=== PATIENT | male | born 1995 | race Caucasian/White ===

== ENCOUNTER 2019-12-16 16:06 | Emergency (ER) | payer BC, SELFPAY ==
[2019-12-16 16:08] VITALS: BP 105/68; PULSE 73; RESP 16; TEMP 36.2; O2SAT 98; BMI 22.6
--- NOTE | 2019-12-16 16:32 | ED.VISSUMM ---
- ER Visit Summary Date of Service: 12/16/19 Chief Complaint: Covid test History of Present Illness: The patient is a 24 M who is requesting a test for COVID-19. He lives with someone who is positive. He has no symptoms. He has a history of occasional alcohol use and tobacco use. Physical Examination: Afebrile and vital signs unremarkable. Exam unremarkable. Test Results: Send out COVID-19 test is pending. Emergency Department Course and Treatment: Screening performed. We will send a nonemergent test. He will maintain social precautions. Patient was discharged. Treatment Plan: As above Disposition: As above Impression: COVID-19 screen This note was generated with [employer] dictation software. It may contain incorrect words, spelling, and punctuation that were not noted in review of the chart prior to signing ED Disposition - Plan for ED Patient: Referrals: Reggie Garcia MD [Primary Care Provider] -
--- NOTE | 2019-12-16 16:33 | ED.DEP ---
ED Disposition - Plan for ED Patient: Instructions: ED Upper Resp Infec No Abx Tx Referrals: Reggie Garcia MD [Primary Care Provider] -
== END 2019-12-16 16:58 | disposition home or self-care (01) ==
LOC: ED 16:50
PROVIDERS: Emergency Provider Emergency Medicine
DX: Z20.828 Contact with and (suspected) exposure to other viral communicable diseases (principal); Z72.0 Tobacco use
CPT/HCPCS: 87635; 99282; U0003

== ENCOUNTER 2021-01-31 20:17 | Emergency (ER) | payer SELFPAY ==
[2021-01-31 20:22] VITALS: BP 137/83; PULSE 99; RESP 17; TEMP 37.7; O2SAT 99; BMI 17.4
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
[2021-01-31 20:56] LABS: Absolute Lymphocyte Count 2.94 X10^3/uL (0.83-4.51); Absolute Neutrophil Count 8.1 X10^3/uL (2.0-7.7); Basophil# 0.07 X10^3/uL; Basophil% 0.6 % (0-1); Eosinophil# 0.12 X10^3/uL; Hematocrit 42.7 % (40-54); Lymphocyte # 2.94 X10^3/ul (0.83-4.51); Lymphocyte % 24.5 % (19-41); Mean Corp Hgb Conc 35.1 g/dL (32-36); Mean Corpuscular Volume 85.4 fL (80-94); Monocyte# 0.74 X10^3/uL; Monocyte% 6.2 % (0-10); NRBC Flagged by Analyzer 0 % (0-5); Neutrophil # 8.08 X10^3/uL (2.7-7.7); Neutrophil % 67.4 % (47-70); Platelet Count 246 K/mm3 (150-450); RBC Distribution Width CV 12.5 % (11.6-14.6); RBC Distribution Width SD 38.7 fl (35.1-43.9)
[2021-01-31 21:11] LABS: Amphetamine Urine VISTA NEGATIVE (<1000 ng/mL); Barbiturate Urine VISTA NEGATIVE (< 200 ng/mL); Benzodiazepine Urine VISTA NEGATIVE (< 200 ng/mL); Cocaine Urine VISTA NEGATIVE (< 300 ng/mL); Ecstacy Urine VISTA NEGATIVE (< 500 ng/mL); Methadone Urine VISTA NEGATIVE (< 300 ng/mL); PCP Urine VISTA NEGATIVE (< 25 ng/mL); THC Urine VISTA POSITIVE (< 50 ng/mL); Vista UDS pH Range 5
[2021-01-31 21:14] LABS: ALB/GLOB Ratio 1.5 RATIO (0.9-2.4); AST(SGOT) 15 U/L (15-37); Alanine Aminotransfer ALT/SGPT 25 U/L (16-61); Albumin, Serum 4.7 g/dL (3.2-5.0); Alkaline Phosphatase 67 U/L (45-117); Anion Gap 12 (5-15); BUN 14 mg/dL (7-18); BUN/Creat Ratio 17.7 RATIO (10-20); Calcium,Total 8.7 mg/dL (8.5-10.1); Chloride 106 mmol/L (98-107); Creatinine, Serum 0.79 mg/dL (0.70-1.30); EST Glomerular Filtration Rate 127 mL/min (>60); Est Glom Filt Rate - Afr Amer 154 mL/min (>60); Globulin 3.1 g/dL (2.2-4.2); Glucose 79 mg/dL (74-106); Potassium 3.4 mmol/L (3.5-5.1); Protein, Total 7.8 g/dL (6.4-8.2); Sodium Level 141 mmol/L (136-145)
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
[2021-01-31 22:00] VITALS: RESP 15
[2021-01-31 23:00] VITALS: RESP 16
--- NOTE | 2021-01-31 23:58 | ED.RN ---
CRISIS CALLED AND SAID PATIENT IS PENDING AT [facility]
[2021-02-01] VITALS (8 sets, daily range): BP systolic 115–119; BP diastolic 74–79; PULSE 63–87; RESP 15–16; O2SAT 97
--- NOTE | 2021-02-01 03:06 | ED.RN ---
PATIENT STANDING OUTSIDE OF ROOM. PATIENT STATING HE IS SICK OF SITTING HERE AND WANTS TO LEAVE. PATIENT MADE AWARE HE CANNOT LEAVE DUE TO BEING PINK SLIPPED. PATIENT MADE AWARE HE IS BEING PLACED AT FACILITY. PATIENT AT THAT POINT WALKED OUT OF ROOM AND OUTSIDE DOWN THE RAMP. THIS RN AND RF TECHNICIAN FOLLOWED BEHIND PATIENT. PATIENT THEN TURNED AROUND. PATIENT COMES BACK INTO ER. PATIENT STATES IT IS TOO COLD FOR THAT HIS FEET ARE ALREADY NUMB. PATIENT RETURNED TO ROOM.
--- NOTE | 2021-02-01 05:09 | ED.RN ---
CRISIS CALLED AND THEY HAVE SET UP A RIDE FOR PATIENT TO LEAVE AT 0730 WITH [facility]
--- NOTE | 2021-02-01 07:10 | ED.RN ---
attempt to call report to nurse at [facility]. Nurse is currently busy in report. Nurse will call back
== END 2021-02-01 07:40 ==
LOC: ED 21:04
PROVIDERS: Emergency Provider Student in an Organized Health Care Education/Training Program
DX: R45.851 Suicidal ideations (principal); F17.210 Nicotine dependence, cigarettes, uncomplicated
CPT/HCPCS: 80053; 80307; 82077; 85025; 87426; 99284; A4216

== ENCOUNTER 2023-07-06 07:26 | Day surgery (SDC) | payer MEDICAID, SELFPAY ==
[2023-07-06 07:43] VITALS: BP 104/75; PULSE 75; RESP 16; TEMP 36.1; O2SAT 100; BMI 19.2
[2023-07-06] MEDS: Lactated Ringers 1,000 ML 15 ML IV (07:45)
--- NOTE | 2023-07-06 08:21 | PCM.HP.BLA ---
History and Physical Date of Admission: 07/06/23 Intake Vital Signs 02/01/2120:22 05/30/2408:16 06/14/2407:05 Height 6 ft 6 ft 5 ft 6 in Weight: 124 lb 6 oz BMI 20.0 BP 107/74 Blood Pressure Location Rt brachial Position Sitting Respiration 18 Pulse 92 Pulse Source Monitor Temp 98.0 F Temp Source Temporal Pulse Oximetry (%) 98 Oxygen Delivery Method room air Intake Visit Reasons: ABDOMEN PAIN Chief Complaint: Abdominal pain Instrument Technologist Required: No Is patient in pain?: No Allergies No Known Allergies Allergy (Verified 06/14/23 08:06) Medications dicyclomine 20 mg tablet 20 mg PO TID 06/14/23 [History Confirmed 06/14/23] pantoprazole 40 mg tablet,delayed release 40 mg PO QDAY 06/14/23 [History Confirmed 06/14/23] rifaximin 550 mg tablet (Xifaxan) 550 mg PO TID 06/14/23 [History Confirmed 06/14/23] PFSH Medical History Abdominal pain Anxiety with depression Diarrhea Marijuana use Surgical History (Updated 06/14/23 @ 08:04 by Mindy Perez) No history of previous surgery Social History (Updated 06/14/23 @ 08:05 by Mindy Perez) Smoking Status: Current every day smoker Electronic Cigarette Use: with nicotine alcohol intake: current alcohol intake frequency: a few times a month Alcohol type: beer substance use type: marijuana HPI HPI HPI: Patient is a 27-year-old male here for epigastric pain. The patient reports has been going on for several years. He says it is constant. It does not radiate. He said nothing he does makes it better or worse. He has been on omeprazole for a month. He notes no improvement. He also says he has been having a lot of diarrhea and has 3-4 bowel movements every morning. He says they are not formed. He has not noted any blood in the stool or lower abdominal pain. ROS General General: Yes fatigue; No weight change, appetite, colon cancer, breast cancer or weakness HEENT HEENT: No difficulty swallowing, eye injury, eye surgery, swollen glands or hoarseness Endo Endocrine: No thyroid disease, diabetes mellitus, thyroid cancer, Hair loss, heat intolerance or cold intolerance Skin Skin: No rash or changing moles Breast Breast: No left breast lump, right breast lump, nipple discharge, breast pain, abnormal mammogram, abnormal US or breast enlargement Musc Musculoskeletal: No back problems, arthritis, rheumatoid arthritis, gout or joint pain Cardio Cardiovascular: No murmur, pacemaker, heart disease, atrial fibrillation, high blood pressure, heart attack, heart stent, palpitations, shortness of breat with exertion or chest pain Psych Psychiatric: Yes depression and anxiety; No hearing voices Additional Details: ADHD, OCD Resp Respiratory: No shortness of breath, No sleep apnea, No cough, No COPD, No asthma, No emphysema and No wheezing Gastro Gastrointestinal: Yes abdominal pain, Yes nausea or vomiting, Yes diarrhea, Yes constipation, No blood in stool, No acid reflux, No hemorrhoids, No ulcers, No gallbladder problem and No black,tarry stools Devante Hematologic: No blood thinners, No blood disorders, No bleeding, No anemia and No blood clots Neuro Neurologic: No system reviewed and no additional complaints, except as documented, No as per HPI, No abnormal gait, No abnormal hearing, No abnormal movements, No abnormal speech, No behavioral changes, No burning sensations, No confusion, No convulsions, No disequilibrium, No dizziness, No localized weakness, No frequent falls, No headache(s), No lack of coordination, No loss of vision, No memory loss, No numbness, No other visual disturbances, No radicular pain, No restless legs, No sensory deficit, No syncope, No tingling, No tremor(s), No weakness and No other Exam Const General: cooperative Orientation: alert and oriented x3 HENMT Head: normal to inspection Neck Neck: normal visual inspection and full ROM Chest Chest palpation & inspection: normal inspection of the chest Resp Effort & Inspection: normal respiratory effort Auscultation: clear to auscultation bilaterally Cardio Rate: regular rate Rhythm: regular rhythm GI Inspection: non-distended Palpation: soft and nontender Skin General: no rashes or lesions noted Neuro General: patient alert and patient oriented x3 Extrem General: full ROM Psych Appearance: grossly normal Mental Status: mental status grossly normal Assessment and Plan Assessment and Plan (1) Epigastric pain: Status: Acute Plan: The patient has been having epigastric pain for years. Patient has been on omeprazole for a month but has not noted any improvement. I recommended EGD and colonoscopy to evaluate for his abdominal pain but at this time the patient would only like EGD. I explained endoscopy in detail to the patient. I explained the risks including but not limited to stroke or heart attack with anesthesia, perforation of the GI tract, bleeding, infection. I explained that any of these could necessitate further emergency surgery. The patient understands and all questions were answered sufficiently. The patient wishes to proceed with procedure. Francis Oliver MD Pager: [facility] [address] [place] [address] [address] [place] [address] Office: I have examined the patient and the H&P has been reviewed. There are no clinical changes since date of exam.
--- NOTE | 2023-07-06 08:30 | EGD_PTH ---
PATIENT: FLORA BALLARD LOC: EN U#:[id number] AGE/SX: 27/M ROOM: RE07/06/[address]: Dr. Francis Oliver MD : 1995 BED: DIS: 07/06/2023 SPEC #: [id number] RECD: 07/06/23 11:29 STATUS: MALKA VASQUEZ #: [id number] ANA: 07/06/23 08:[address]: Francis Oliver DEPT: SURGICAL PATHOLOGY RECD BY: Traci Chou ENTERED: 07/06/23 13:15 SP TYPE: EGD BIOPSY OT DR: Mynor Dsouza, ANNABELLA-Daryl Tissues: A - Gastric mucous membrane B - Stomach, NOS Procedures: Special Stain Group II Surgery Specimen Level IV Alcian Blue/PAS (control) HEADER OPERATION: EGD with biopsies PRE-OP DIAGNOSIS: Epigastric pain TISSUE SUBMITTED: A- Gastric antrum biopsy, B- Gastroesophageal junction biopsy MICROSCOPIC DIAGNOSIS A. Gastric antrum, biopsy: Chronic gastritis. B. Gastroesophageal junction, biopsy: Mild chronic inflammation. No evidence of goblet cell metaplasia. See comment. AM/mr 07/07/2023 COMMENT A. The results of immunohistochemistry for Helicobacter pylori will be reported separately ([id number]). B. Alcian blue/PAS stain with matched control supports the above diagnosis. MICROSCOPIC DESCRIPTION Slides are reviewed. GROSS DESCRIPTION A. Received in fixative is one container labeled with the patient's name and designated Gastric antrum biopsy. The specimen consists of one irregular fragment of light pacheco soft tissue that measures 0.5 x 0.5 x 0.1 cm. The specimen is totally submitted in one cassette. B. Received in fixative is one container labeled with the patient's name and designated GE junction biopsy. The specimen consists of multiple irregular fragments of light pacheco soft tissue that in aggregate measure 0.7 x 0.5 x 0.1 cm. The specimen is totally submitted in one cassette. AM/mr 07/06/23 TC:3 CPT: 38032m0,61271
--- NOTE | 2023-07-06 08:30 | IMM_PTH ---
PATIENT: FLORA BALLARD LOC: EN U#:[id number] AGE/SX: 27/M ROOM: RE07/06/[address]: Dr. Francis Oliver MD : 1995 BED: DIS: 07/06/2023 SPEC #: [id number] RECD: 07/06/23 13:49 STATUS: MALKA VASQUEZ #: [id number] ANA: 07/06/23 08:[address]: Francis Oliver DEPT: IMMUNOHISTOCHEMISTRY RECD BY: Geovanny Creda ENTERED: 07/06/23 13:49 SP TYPE: IMMUNO OTHR DR: DEEDEE Soto Tissues: A - Gastric mucous membrane Procedures: H Pylori (initial) PHYSICIAN & INSTITUTION [place] [id number] SPECIMEN INFORMATION: Tissue Source: A- Gastric antrum biopsy Clinical Info: Epigastric pain Specimen Number: [id number] CPT code: 78054 METHODOLOGY: Deparaffinized sections of prefer/formalin-fixed tissue or PAP/DQ stained slides are incubated with monoclonal/polyclonal antibodies/oligonucleotide probes. Localization is made via biotin free immunoperoxidase method. Appropriate controls are performed and reacted as expected. Results on target cell population are indicated in the following table: RESULTS: ANTIBODY / CLONE RESULT Block A H Pylori (polyclonal) negative These tests were developed and their performance characteristics determined by [facility]. They may not have been cleared or approved by the U.S. Food and Drug Administration. The FDA has determined that such clearance or approval is not necessary. The above immunohistochemical/dualISH markers are ordered and reviewed by the Pathologist. INTERPRETATION: A. Gastric antrum, biopsy: Negative for Helicobacter pylori organisms. NEERU/ 07/07/2023
[2023-07-06 08:46] VITALS: BP 104/75; BP 94/60; PULSE 60; RESP 14; TEMP 36.2; O2SAT 98
--- NOTE | 2023-07-06 08:46 | OP.EGD_ITS ---
Patient Name: Juanito Combs Procedure Date: 07/06/2023 8:26 AM Date of : 1995 Age: 27 Procedure: Upper GI endoscopy Indications: Epigastric abdominal pain Providers: Francis Oliver MD Referring MD: Mynor Dsouza [facility], Associate Professor Of Biology-c Medicines: Propofol per Anesthesia Patient Profile: This is a 27 year old male. Refer to note in patient chart for documentation of history and physical. Complications: No immediate complications. Procedure: Pre-Anesthesia Assessment: - Prior to the procedure, a History and Physical was performed, and patient medications and allergies were reviewed. The patient's tolerance of previous anesthesia was also reviewed. The risks and benefits of the procedure and the sedation options and risks were discussed with the patient. All questions were answered, and informed consent was obtained. Prior Anticoagulants: The patient has taken no anticoagulant or antiplatelet agents. After reviewing the risks and benefits, the patient was deemed in satisfactory condition to undergo the procedure. After obtaining informed consent, the endoscope was passed under direct vision. Throughout the procedure, the patient's blood pressure, pulse, and oxygen saturations were monitored continuously. The Endoscope was introduced through the mouth, and advanced to the third part of duodenum. The upper GI endoscopy was accomplished without difficulty. The patient tolerated the procedure well. Scope In: 8:37:13 AM Scope Out: 8:41:39 AM Total Procedure Duration Time 0 hours 4 minutes 26 seconds Findings: The esophagus was normal. The stomach was normal. The examined duodenum was normal. Biopsies were taken with a cold forceps in the gastric antrum for Helicobacter pylori testing. Biopsies were taken with a cold forceps at the gastroesophageal junction for histology. Impression: - Normal esophagus. - Normal stomach. - Normal examined duodenum. - No specimens collected. Recommendation: - Discharge patient to home. - Resume previous diet. - Continue present medications. - Return to my office PRN. Procedure Code(s): --- Professional --- 89644, Esophagogastroduodenoscopy, flexible, transoral; with biopsy, single or multiple Diagnosis Code(s): --- Professional --- R10.13, Epigastric pain CPT copyright 2021 [employer]. All rights reserved. The codes documented in this report are preliminary and upon hims coder review may be revised to meet current compliance requirements. Francis Oliver MD 07/06/2023 8:45:35 AM This report has been signed electronically. Number of Addenda: 0 Note Initiated On: 07/06/2023 8:26 AM
--- NOTE | 2023-07-06 08:46 | OP.CCLET_ITS ---
07/06/2023 Mynor Dsouza [facility], Credit Coordinator-c Re : Upper GI endoscopy procedure for Juanito Combs Dear Lianna This procedure was performed on Thursday, July 06, 2023. My impressions and recommendations are as follows: Impressions : - Normal esophagus. - Normal stomach. - Normal examined duodenum. - No specimens collected. Recommendations : - Discharge patient to home. - Resume previous diet. - Continue present medications. - Return to my office PRN. My findings are described in the full procedure note, which is enclosed. If I can be of further assistance, please feel free to contact me at Doctor phone number(s): , Work: . Sincerely, Francis Oliver MD 07/06/2023 8:45:35 AM This report has been signed electronically.
[2023-07-06 08:50] VITALS: BP 104/75; BP 92/62; PULSE 60; PULSE 61; RESP 14; O2SAT 95; O2SAT 98
[2023-07-06 09:00] VITALS: BP 104/75; BP 94/67; PULSE 52; RESP 14; O2SAT 96
[2023-07-06 09:07] VITALS: BP 104/75; BP 94/66; PULSE 56; RESP 14; TEMP 36.7; O2SAT 99
[2023-07-06 09:21] VITALS: BP 104/75
== END 2023-07-06 09:37 | disposition home or self-care (01) ==
LOC: EN 07:26 → AC 07:29
PROVIDERS: PCP Nurse Practitioner Family; Referring Provider Nurse Practitioner Family; Visit Provider Surgery
PROC: 0DJ08ZZ Inspection of Upper Intestinal Tract, Via Natural or Artificial Opening Endoscopic (ICD-10-PCS; CPT 43235; principal; 2023-07-06 08:25)
DX: K29.50 Unspecified chronic gastritis without bleeding (principal); F17.290 Nicotine dependence, other tobacco product, uncomplicated; Z79.899 Other long term (current) drug therapy
CPT/HCPCS: 43239; 88305; 88313; 88342; J7120; J2405

== ENCOUNTER 2023-08-03 09:05 | Day surgery (SDC) | payer MEDICAID, SELFPAY ==
[2023-08-03 09:30] VITALS: BP 95/63; PULSE 56; RESP 16; TEMP 36.6; O2SAT 100; BMI 19.5
[2023-08-03] MEDS: Lactated Ringers 1,000 ML 15 ML IV (09:30)
--- NOTE | 2023-08-03 09:32 | PRE.ANES_ITS ---
ASA Classification* ASA Classification ASA Classification: 2 Assessment & Plan Anesthesia* Anesthesia Assessment Anesthesia Assessment: Discussed sedation and/or anesthesia options, risks, benefits, and alternatives with patient/parents/legal guardian/POA. Questions invited. The patient/parents/legal guardian/POA seems to understand and agrees to proceed with anesthesia plan. Reviewed the physical assessment, medical history, allergy history and patient home medications list prior to surgery/procedure/anesthetic and documented any changes. Performed airway and anesthesia risk assessments. 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 When Was Last Pacemaker Check QUESTION #4 FULL TEXT: You/Your Family Experience fever (hyperthermia) with Anesthesia Last Oral Intake Last Oral intake: Last Oral Intake NPO since Meds taken in AM with sips of water? Meds patient instructed to take am of surgery PONV PONV - pneumatic tool repairer: PONV - pneumatic tool repairer Female No 07/29/23 08:39 HX of Motion Sickness No 07/29/23 08:39 HX of N/V After Surgery No 07/29/23 08:39 Non-Smoker No 07/29/23 08:39 Duration of Surgery greater No 07/29/23 08:39 than 60 minutes Number of Risk Factors PONV Score Height & Weight Height & Weight: Anesthesia: Height & Weight Height 5 ft 6 in 07/06/23 07:43 Respiratory Assessment Respiratory Assessment - pneumatic tool repairer: Respiratory Tract Infection Hx - pneumatic tool repairer Hx Respiratory Tract Infection No 07/29/23 08:39 STOP Sleep Apnea STOP Sleep Apnea - pneumatic tool repairer: STOP Sleep Apnea - pneumatic tool repairer Hx Hypertension No 07/29/23 08:39 Hx Sleep Apnea No 07/29/23 08:39 CPAP BIPAP Do you snore loudly (louder No 07/29/23 08:39 than talking or can be heard Do you often feel tired/ No 07/29/23 08:39 fatigued/ sleepy during daytime? Has anyone observed you stop No 07/29/23 08:39 breathing during sleep? STOP Results Negative 07/29/23 08:39 QUESTION #5 FULL TEXT : Do you snore loudly (louder than talking or can be heard through closed doors)? 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 Specify any problems Hx of Preganancy in last 3 N/A 07/29/23 08:39 Months [facility] 07/29/23 08:39 & Questions: Date: 07/29/23 07/29/23 08:39 Time: 08:41 07/29/23 08:39 Patient unable to answer at this time (ie. confused, unrespo /Reproduction History /Reproductive History - pneumatic tool repairer: /Reproductive Hx- pneumatic tool repairer Hx Now No 07/29/23 08:39 Gestational Age (in weeks): EDC: Hx Hx Para Hx Section SAB No 07/29/23 08:39 Active Medications Active Medications: Current Medications Generic Name Dose Route Start Last Admin Trade Name Freq PRN Reason Stop Dose Admin Lactated Ringer's 1,000 mls @ 15 mls/hr 08/03/23 09:30 08/03/23 09:30 IV 15 mls/hr .Q48H ADAMARIS Administration Anesthesia Focused Assessment* Airway Assessment Mouth opens: >3 cm Mallampati Score: II Focused Labs Anesthesia Preop lab: CBC WBC 12.0 K/mm3 (4.4-11.0) H 01/31/21 20:45 RBC 5.00 M/mm3 (4.6-6.2) 01/31/21 20:45 Hgb 15.0 g/dL (13.0-16.5) 01/31/21 20:45 Hct 42.7 % (40-54) 01/31/21 20:45 Plt Count 246 K/mm3 (150-450) 01/31/21 20:45 CHEMISTRY Potassium 3.4 mmol/L (3.5-5.1) L 01/31/21 20:45 Sodium 141 mmol/L (136-145) 01/31/21 20:45 BUN 14 mg/dL (7-18) 01/31/21 20:45 Creatinine 0.79 mg/dL (0.70-1.30) 01/31/21 20:45 Glucose 79 mg/dL (74-106) 01/31/21 20:45 TSH 1.68 uIU/mL (0.358-3.74) 10/24/12 09:43 COAG Review of Systems (Anesthesia) ROS Narrative System reviewed and no additional complaints, except as documented. [facility] Medical History Wears glasses Marijuana use Diarrhea Abdominal pain Anxiety with depression Home Medications ?Medication ?Instructions ?Recorded ?Last Taken ?Type pantoprazole 40 mg tablet,delayed 40 mg PO QDAY 06/14/23 08/02/23 History release cholecalciferol (vitamin D3) 125 125 mcg PO DAILY 07/29/23 08/03/23 History mcg (5,000 unit) tablet (Vitamin D3) Allergy/AdvReac Type Severity Reaction Status Date / Time No Known Allergies Allergy Verified 08/03/23 09:27 Surgical History History of esophagogastroduodenoscopy (EGD) No history of previous surgery Social History Smoking Status: Current every day smoker tobacco type: cigarettes Electronic Cigarette Use: with nicotine alcohol intake: current alcohol intake frequency: a few times a month Alcohol type: beer substance use type: marijuana
--- NOTE | 2023-08-03 10:15 | COL._PTH ---
PATIENT: FLORA BALLARD LOC: EN U#:[id number] AGE/SX: 27/M ROOM: RE08/03/[address]: Dr. Francis Oliver MD : 1995 BED: DIS: 08/03/2023 SPEC #: [id number] RECD: 08/03/23 12:14 STATUS: MALKA VASQUEZ #: [id number] ANA: 08/03/23 10:[address]: Francis Oliver DEPT: SURGICAL PATHOLOGY RECD BY: Geovanny Cerda ENTERED: 08/03/23 12:14 SP TYPE: COLON OTHR DR: Mynor Dsouza, ANNABELLA-Daryl Tissues: Colon, NOS Procedures: Surgery Specimen Level HEADER OPERATION: Colonoscopy, biopsy PRE-OP DIAGNOSIS: Epigastric pain TISSUE SUBMITTED: Random colon biopsy MICROSCOPIC DIAGNOSIS Colon, random biopsy: No pathologic change. AM/mr 08/04/2023 MICROSCOPIC DESCRIPTION Slides are reviewed. GROSS DESCRIPTION Received in fixative is one container labeled with the patient's name and designated Random colon biopsy. The specimen consists of multiple irregular fragments of light pacheco soft tissue that in aggregate measure 1.0 x 0.5 x 0.1 cm. The specimen is totally submitted in one cassette. NEERU/ 08/03/2023 TC:5 CPT:52040
--- NOTE | 2023-08-03 10:29 | PCM.HP.BLA ---
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 Is patient in pain?: No Allergies No Known Allergies Allergy (Verified 06/14/23 08:06) Medications dicyclomine 20 mg tablet 20 mg PO TID 06/14/23 [History Confirmed 06/14/23] pantoprazole 40 mg tablet,delayed release 40 mg PO QDAY 06/14/23 [History Confirmed 06/14/23] rifaximin 550 mg tablet (Xifaxan) 550 mg PO TID 06/14/23 [History Confirmed 06/14/23] PFSH Medical History Abdominal pain Anxiety with depression Diarrhea Marijuana use Surgical History (Updated 06/14/23 @ 08:04 by Mindy Perez) No history of previous surgery Social History (Updated 06/14/23 @ 08:05 by Mindy Perez) Smoking Status: Current every day smoker Electronic Cigarette Use: with nicotine alcohol intake: current alcohol intake frequency: a few times a month Alcohol type: beer substance use type: marijuana HPI HPI HPI: Patient is a 27-year-old male here for epigastric pain. The patient reports has been going on for several years. He says it is constant. It does not radiate. He said nothing he does makes it better or worse. He has been on omeprazole for a month. He notes no improvement. He also says he has been having a lot of diarrhea and has 3-4 bowel movements every morning. He says they are not formed. He has not noted any blood in the stool or lower abdominal pain. ROS General General: Yes fatigue; No weight change, appetite, colon cancer, breast cancer or weakness HEENT HEENT: No difficulty swallowing, eye injury, eye surgery, swollen glands or hoarseness Endo Endocrine: No thyroid disease, diabetes mellitus, thyroid cancer, Hair loss, heat intolerance or cold intolerance Skin Skin: No rash or changing moles Breast Breast: No left breast lump, right breast lump, nipple discharge, breast pain, abnormal mammogram, abnormal US or breast enlargement Musc Musculoskeletal: No back problems, arthritis, rheumatoid arthritis, gout or joint pain Cardio Cardiovascular: No murmur, pacemaker, heart disease, atrial fibrillation, high blood pressure, heart attack, heart stent, palpitations, shortness of breat with exertion or chest pain Psych Psychiatric: Yes depression and anxiety; No hearing voices Additional Details: ADHD, OCD Resp Respiratory: No shortness of breath, No sleep apnea, No cough, No COPD, No asthma, No emphysema and No wheezing Gastro Gastrointestinal: Yes abdominal pain, Yes nausea or vomiting, Yes diarrhea, Yes constipation, No blood in stool, No acid reflux, No hemorrhoids, No ulcers, No gallbladder problem and No black,tarry stools Devante Hematologic: No blood thinners, No blood disorders, No bleeding, No anemia and No blood clots Neuro Neurologic: No system reviewed and no additional complaints, except as documented, No as per HPI, No abnormal gait, No abnormal hearing, No abnormal movements, No abnormal speech, No behavioral changes, No burning sensations, No confusion, No convulsions, No disequilibrium, No dizziness, No localized weakness, No frequent falls, No headache(s), No lack of coordination, No loss of vision, No memory loss, No numbness, No other visual disturbances, No radicular pain, No restless legs, No sensory deficit, No syncope, No tingling, No tremor(s), No weakness and No other Exam Const General: cooperative Orientation: alert and oriented x3 HENMT Head: normal to inspection Neck Neck: normal visual inspection and full ROM Chest Chest palpation & inspection: normal inspection of the chest Resp Effort & Inspection: normal respiratory effort Auscultation: clear to auscultation bilaterally Cardio Rate: regular rate Rhythm: regular rhythm GI Inspection: non-distended Palpation: soft and nontender Skin General: no rashes or lesions noted Neuro General: patient alert and patient oriented x3 Extrem General: full ROM Psych Appearance: grossly normal Mental Status: mental status grossly normal Assessment and Plan Assessment and Plan (1) Epigastric pain: Status: Acute Plan: The patient has been having epigastric pain for years. Patient has been on omeprazole for a month but has not noted any improvement. I recommended EGD and colonoscopy to evaluate for his abdominal pain but at this time the patient would only like EGD. I explained endoscopy in detail to the patient. I explained the risks including but not limited to stroke or heart attack with anesthesia, perforation of the GI tract, bleeding, infection. I explained that any of these could necessitate further emergency surgery. The patient understands and all questions were answered sufficiently. The patient wishes to proceed with procedure. Francis Oliver MD Pager: [facility] [address] [place] [address] [address] [place] [address] Office: The patient had EGD and would now like colonoscopy. I have examined the patient and the H&P has been reviewed. There are no clinical changes since date of exam.
--- NOTE | 2023-08-03 10:48 | OP.CCLET_ITS ---
08/03/2023 Mynor Dsouza [facility], Vocational Ed Instructor-c Re : Colonoscopy procedure for Juanito Combs Dear Lianna This procedure was performed on Thursday, August 03, 2023. My impressions and recommendations are as follows: Impressions : - The entire examined colon is normal on direct and retroflexion views. - The examination was otherwise normal on direct and retroflexion views. - Biopsies were taken with a cold forceps from the entire colon for evaluation of microscopic colitis. Recommendations : - Discharge patient to home. - Resume previous diet. - Continue present medications. - Await pathology results. - Repeat colonoscopy at age 46 for screening purposes. My findings are described in the full procedure note, which is enclosed. If I can be of further assistance, please feel free to contact me at Doctor phone number(s): , Work: . Sincerely, Francis Oliver MD 08/03/2023 10:47:44 AM This report has been signed electronically.
--- NOTE | 2023-08-03 10:48 | OP.COLON_ITS ---
Patient Name: Juanito Combs Procedure Date: 08/03/2023 10:27 AM Date of : 1995 Age: 27 Procedure: Colonoscopy Indications: Chronic diarrhea Providers: Francis Oliver MD Medicines: Propofol per Anesthesia Patient Profile: This is a 27 year old male. Refer to note in patient chart for documentation of history and physical. Last Colonoscopy: none. The patient's first colonoscopy is today. Complications: No immediate complications. Estimated blood loss: Minimal. Procedure: Pre-Anesthesia Assessment: - Prior to the procedure, a History and Physical was performed, and patient medications and allergies were reviewed. The patient's tolerance of previous anesthesia was also reviewed. The risks and benefits of the procedure and the sedation options and risks were discussed with the patient. All questions were answered, and informed consent was obtained. Prior Anticoagulants: The patient has taken no anticoagulant or antiplatelet agents. After reviewing the risks and benefits, the patient was deemed in satisfactory condition to undergo the procedure. After I obtained informed consent, the scope was passed under direct vision. Throughout the procedure, the patient's blood pressure, pulse, and oxygen saturations were monitored continuously. The colonoscope was introduced through the anus and advanced to the cecum, identified by appendiceal orifice and ileocecal valve. The colonoscopy was performed without difficulty. The patient tolerated the procedure well. The quality of the bowel preparation was good. The ileocecal valve, appendiceal orifice, and rectum were photographed. Scope In: 10:36:24 AM Scope Withdrawal Time 0 hours 6 minutes 10 seconds Scope Out: 10:45:43 AM Total Procedure Duration Time 0 hours 9 minutes 19 seconds Findings: The entire examined colon appeared normal on direct and retroflexion views. Biopsies for histology were taken with a cold forceps from the entire colon for evaluation of microscopic colitis. The exam was otherwise without abnormality on direct and retroflexion views. Impression: - The entire examined colon is normal on direct and retroflexion views. - The examination was otherwise normal on direct and retroflexion views. - Biopsies were taken with a cold forceps from the entire colon for evaluation of microscopic colitis. Recommendation: - Discharge patient to home. - Resume previous diet. - Continue present medications. - Await pathology results. - Repeat colonoscopy at age 46 for screening purposes. Procedure Code(s): --- Professional --- 06243, Colonoscopy, flexible; with biopsy, single or multiple Diagnosis Code(s): --- Professional --- K52.9, Noninfective gastroenteritis and colitis, unspecified CPT copyright 2021 [employer] [place] [employer]. All rights reserved. The codes documented in this report are preliminary and upon assistant import manager review may be revised to meet current compliance requirements. Francis Oliver MD 08/03/2023 10:47:44 AM This report has been signed electronically. Number of Addenda: 0 Note Initiated On: 08/03/2023 10:27 AM
[2023-08-03 10:50] VITALS: BP 93/64; BP 95/63; PULSE 61; RESP 16; TEMP 36.6; O2SAT 96
--- NOTE | 2023-08-03 10:50 | PCM.POST.ANE ---
Anesthesia: Postop Eval I Current Vital Signs Temperature: 97.8 F Pulse Rate: 61 Blood Pressure: 93/64 Respiratory Rate: 16 Pulse Ox: 97 Oxygen Delivery Method: Room Air Assessment Airway patent: Yes Spontaneous unlabored respirations: Yes Mental status: Asleep nausea: No Vomiting: No Anesthesia Complication: No Fluid Hydration Crystalloid volume administer (ml): 500 Total IV fluid infused: 500 Progress Note Anesthesia document: Postop Eval 1 completed: Yes
[2023-08-03 10:55] VITALS: BP 93/64; BP 94/70; BP 95/63; PULSE 59; PULSE 61; RESP 16; TEMP 36.6; O2SAT 96; O2SAT 97
[2023-08-03 11:00] VITALS: BP 92/66; BP 95/63; PULSE 53; RESP 16; O2SAT 96
--- NOTE | 2023-08-03 11:01 | PCM.POSTANE2 ---
Anesthesia Postop Eval I Sum Postop Eval Completion status Anesthesia document: Postop Eval 1 completed: Yes Anesthesia Postop Eval I Summary Anesthesia Postop Eval I Summary: Anesthesia Postop Eval I: Assessment Summary Airway patent Yes 08/03/23 10:55 [email or web address] Spontaneous unlabored Yes 08/03/23 10:55 [email or web address] respirations Mental status Asleep 08/03/23 10:55 [email or web address] nausea No 08/03/23 10:55 [email or web address] Vomiting No 08/03/23 10:55 [email or web address] Anesthesia Postop Eval I: Fluid Summary Crystalloid volume administer 500 08/03/23 10:55 [email or web address] (ml) Colloids volume administered ( ml) Blood Product volume administered (ml) Total IV fluid infused 500 08/03/23 10:55 [email or web address] Anesthesia Postop Eval I: Summary Notes Anesthesia Complication No 08/03/23 10:55 [email or web address] Anesthesia Complication Comment: Post-operative progress note Anesthesia: Postop Eval II Evaluation Mental status: Awake Pain Level: 0 nausea: No Vomiting: No
[2023-08-03 11:10] VITALS: BP 95/63; BP 98/67; PULSE 55; RESP 16; TEMP 36.5; O2SAT 100
[2023-08-03 11:13] VITALS: BP 95/63
== END 2023-08-03 12:07 | disposition home or self-care (01) ==
LOC: EN 09:05 → AC 09:06
PROVIDERS: PCP Nurse Practitioner Family; Referring Provider Surgery; Visit Provider Surgery
PROC: 0DJD8ZZ Inspection of Lower Intestinal Tract, Via Natural or Artificial Opening Endoscopic (ICD-10-PCS; CPT 45378; principal; 2023-08-03 10:10)
DX: K52.9 Noninfective gastroenteritis and colitis, unspecified (principal); F17.290 Nicotine dependence, other tobacco product, uncomplicated; Z79.899 Other long term (current) drug therapy
CPT/HCPCS: 45380; 88309; J2405

== ENCOUNTER → 2023-11-09 | Outpatient (CLI) | payer MEDICAID, SELFPAY ==
[2023-11-09 09:31] LABS: Absolute Lymphocyte Count 1.31 X10^3/uL (0.83-4.51); Absolute Neutrophil Count 4.7 X10^3/uL (2.0-7.7); Basophil# 0.06 X10^3/uL; Basophil% 0.9 % (0-1); Eosinophil# 0.11 X10^3/uL; Eosinophils% 1.6 % (0-5); Hematocrit 42.2 % (40-54); Hemoglobin 14.4 g/dL (13.0-16.5); Lymphocyte # 1.31 X10^3/ul (0.83-4.51); Lymphocyte % 19.4 % (19-41); Mean Corp Hgb Conc 34.1 g/dL (32-36); Mean Corpuscular Volume 84.9 fL (80-94); Mean Platelet Vol. 10.3 fl (6.2-12.0); Monocyte# 0.53 X10^3/uL; Monocyte% 7.8 % (0-10); NRBC Flagged by Analyzer 0 % (0-5); Neutrophil # 4.74 X10^3/uL (2.7-7.7); Platelet Count 240 K/mm3 (150-450); RBC Distribution Width CV 12.8 % (11.6-14.6); RBC Distribution Width SD 39.1 fl (35.1-43.9); Red Blood Count 4.97 M/mm3 (4.6-6.2); White Blood Count 6.8 K/mm3 (4.4-11.0)
[2023-11-09 09:34] LABS: Erythrocyte Sedimentation Rate < 1 mm/hr (0-20)
[2023-11-09 10:14] LABS: ALB/GLOB Ratio 1.4 RATIO (0.9-2.4); AST(SGOT) 14 U/L (15-37); Alanine Aminotransfer ALT/SGPT 21 U/L (16-61); Albumin, Serum 4.5 g/dL (3.2-5.0); Alkaline Phosphatase 59 U/L (45-117); Anion Gap 5 (5-15); BUN 17 mg/dL (7-18); BUN/Creat Ratio 20.1 RATIO (10-20); CRP < 2.90 mg/L (0.0-3.0); Calcium,Total 9.3 mg/dL (8.5-10.1); Chloride 106 mmol/L (98-107); Creatinine, Serum 0.85 mg/dL (0.70-1.30); EST Glomerular Filtration Rate 115 mL/min (>60); Est Glom Filt Rate - Afr Amer 140 mL/min (>60); Free T3 3.4 pg/mL (2.18-3.98); Globulin 3.2 g/dL (2.2-4.2); Glucose 89 mg/dL (74-106); LDH 130 U/L (87-241); Potassium 3.9 mmol/L (3.5-5.1); Protein, Total 7.7 g/dL (6.4-8.2); Sodium Level 139 mmol/L (136-145)
[2023-11-11 15:09] LABS: Anti-Centromere B Ab <0.2 AI (0.0-0.9); Anti-Chromatin <0.2 AI (0.0-0.9); Anti-Jo <0.2 AI (0.0-0.9); Anti-Scleroderma-70 AB <0.2 AI (0.0-0.9); Anti-dsDNA Ab 1 IU/mL (0-9); Beef <0.10 kU/L (Class 0); Chocolate <0.10 kU/L (Class 0); Codfish <0.10 kU/L (Class 0); Corn 0.42 kU/L (Class I); Egg, Whole <0.10 kU/L (Class 0); Milk (Cow) <0.10 kU/L (Class 0); Mussels 0.11 kU/L (Class 0/I); Pork <0.10 kU/L (Class 0); RNP Ab 0.6 AI (0.0-0.9); SJOGREN'S Anti-SS-A test < 0.2 AI (0.0-0.9); SJOGREN'S Anti-SS-B test < 0.2 AI (0.0-0.9); Salmon <0.10 kU/L (Class 0); Shrimp 0.24 kU/L (Class 0/I); Smith Ab <0.2 AI (0.0-0.9); Soybean 0.44 kU/L (Class I); Tuna <0.10 kU/L (Class 0); Wheat 0.48 kU/L (Class I)
[2023-11-12 17:07] LABS: ACCA 28 units (0-90); ALCA 12 units (0-60); AMCA 24 units (0-100); Albumin 4.6 g/dL (2.9-4.4); Alpha-1-Globulins 0.2 g/dL (0.0-0.4); Alpha-2-Globulins 0.5 g/dL (0.4-1.0); Cytoplasmic Ab (C-ANCA) <1:20 titer (Neg:<1:20); Endomysial Antibody IgA Negative (Negative); Gamma Globulin 0.9 g/dL (0.4-1.8); Immunoglobulin A 147 mg/dL (90-386); Immunoglobulin E 119 IU/mL (6-495); Immunoglobulin G 1050 mg/dL (603-1613); Immunoglobulin M 103 mg/dL (20-172); Perinuclear Ab (P-ANCA) <1:20 titer (Neg:<1:20); gASCA 6 units (0-50); t-Transglutaminase IgA <2 U/mL (0-3)
== END | disposition home or self-care (01) ==
LOC: LAB 08:42
PROVIDERS: PCP Nurse Practitioner Family; Referring Provider Student in an Organized Health Care Education/Training Program; Visit Provider Student in an Organized Health Care Education/Training Program
DX: R10.13 Epigastric pain (principal); R19.7 Diarrhea, unspecified
CPT/HCPCS: 36415; 80053; 82784; 82785; 83516; 83615; 84165; 84439; 84443; 84481; 85025; 85652; 86003; 86005; 86036; 86140; 86225; 86235; 86255; 86256; 86334; 86671

== ENCOUNTER → 2023-11-24 | Outpatient (CLI) | payer MEDICAID, SELFPAY ==
[2023-11-27 00:07] LABS: Pancreatic Elastase, Fecal > 800 (>200)
[2023-11-27 05:10] LABS: Calprotectin, Stool 93 ug/g (0-120)
== END | disposition home or self-care (01) ==
LOC: LAB 09:18
PROVIDERS: PCP Nurse Practitioner Family; Referring Provider Student in an Organized Health Care Education/Training Program; Visit Provider Student in an Organized Health Care Education/Training Program
DX: K58.0 Irritable bowel syndrome with diarrhea (principal); R10.13 Epigastric pain
CPT/HCPCS: 82653; 83630; 83993; 87177; 87209; 87329; 87493; 87506